=== PATIENT | female | born 1990 | race Caucasian/White ===

== ENCOUNTER → 2024-06-16 10:31 | Outpatient (CLI) | payer OTHER, SELFPAY ==
--- NOTE | 2024-06-16 10:33 | DI.US.S_ITS ---
PROCEDURE: US PELVIC COMPLETE INDICATIONS: EVALUATE KNOWN RIGHT OVARIAN CYST TECHNIQUE: Real-time scanning was performed of the pelvic organs, with image documentation. Additional endovaginal scanning was necessary due to incomplete visualization of the adnexal and endometrial structures by transabdominal scanning. COMPARISON: [facility], US, US PELVIC COMPLETE, 10/29/2023, 12:03. FINDINGS: Uterus: Uterus is anteverted, retroflexed, and normal in size at 5.3 x 4.3 x 6.1 cm. The myometrium is homogeneous. There is an exophytic mass arising from the right anterior midbody measuring 3.8 x 3.1 x 3.6 cm, similar compared to prior. The endometrium contains a T-shaped IUD in appropriate position. The thickness was not well able to be measured. The string is seen within the upper cervix. Ovaries: The right ovary measures 5.1 x 3.2 x 4.1 cm, with a calculated ovarian volume of 35.4 cc. The left ovary measures 3.3 x 4.8 x 1.5 cm, with a calculated ovarian volume of 12.5 cc. The ovaries have a normal sonographic appearance. There is a simple cyst in the right ovary measuring up to 4.1 cm. Less than 12 follicles are seen in each ovary. No adnexal masses are seen. Other: No pathologic free abdominal or pelvic fluid. IMPRESSION: Subserosal uterine fibroid has minimally changed in size. A T-shaped IUD is stable. A simple right ovarian cyst is present and likely physiologic. We strive to produce accurate, complete, and clear reports of imaging services. To assist us in improving patient care, this report was composed using standard report templates and voice recognition software. Therefore, it may contain abnormal punctuation, insertions and/or omissions. Occasional wrong-word or sound-alike substitutions may occur. Though we review the report and make efforts to correct it, we do recommend that the report be read carefully in proper context to recognize any text inaccuracies. Dictated by: Eliza Pool M.D. on 06/16/2024 at 18:40 Approved by: Eliza Pool M.D. on 06/16/2024 at 18:46
== END ==
PROVIDERS: Referring Provider Student in an Organized Health Care Education/Training Program; Visit Provider Student in an Organized Health Care Education/Training Program
DX: N83.291 Other ovarian cyst, right side (principal); D25.2 Subserosal leiomyoma of uterus; Z97.5 Presence of (intrauterine) contraceptive device
CPT/HCPCS: 76830; 76856

== ENCOUNTER → 2025-04-20 09:58 | Outpatient (CLI) | payer OTHER, SELFPAY ==
--- NOTE | 2025-04-20 09:59 | DI.US.S_ITS ---
PROCEDURE: US ABDOMEN LIMITED INDICATIONS: classical hodgkin lymphoma TECHNIQUE: Real-time focused scanning was performed of the inguinal region, with image documentation. COMPARISON: None. FINDINGS/IMPRESSION: Targeted ultrasound of the left groin demonstrates a partially capsulated lipoma without suspicious soft tissue features. This measures 6.8 x 3.0 x 1.0 centimeter. Dictated by: Michael Felix M.D. on 04/20/2025 at 14:18 Approved by: Michael Felix M.D. on 04/20/2025 at 14:19
== END ==
PROVIDERS: Referring Provider Internal Medicine Hematology & Oncology; Visit Provider Internal Medicine Hematology & Oncology
DX: C81.70 Other Hodgkin lymphoma, unspecified site (principal); R59.0 Localized enlarged lymph nodes; D17.5 Benign lipomatous neoplasm of intra-abdominal organs
CPT/HCPCS: 76705